=== PATIENT | female | born 1980 | race Caucasian/White ===

== ENCOUNTER 2017-08-15 21:37 | Emergency (ER) | payer SELFPAY ==
[~2017-08-15] VITALS: Ht 167.6 cm; Wt 87.3 kg
[~2017-08-15 21:37] MED LIST: NORE1TAB PO; TRI115O TD
[2017-08-15 21:38] VITALS: BP 157/96
[2017-08-16] MEDS ORDERED: METHOCARBAMOL 750 MG TABLET PO ONE (00:45)
[2017-08-16] MEDS ORDERED: ACETAMINOPHEN/CODEINE 300-30 MG TABLET PO ONE (00:45)
[2017-08-16] MEDS ORDERED: IBUPROFEN 600 MG TABLET PO ONE (00:45)
[2017-08-16] MEDS ORDERED: METHOCARBAMOL 500 MG TABLET PO ONE (01:00)
== END 2017-08-16 02:49 | disposition home or self-care (01) ==
LOC: EMS 21:38
DX: S29.012A Strain of muscle and tendon of back wall of thorax, initial encounter (principal); S16.1XXA Strain of muscle, fascia and tendon at neck level, initial encounter; V43.62XA Car passenger injured in collision with other type car in traffic accident, initial encounter; Y93.89 Activity, other specified; Y92.410 Unspecified street and highway as the place of occurrence of the external cause; Y99.8 Other external cause status
CPT/HCPCS: 72040; 72070; 72100; 99284

== ENCOUNTER 2019-12-21 16:33 | Emergency (ER) | payer OTHER ==
[~2019-12-21] VITALS: Ht 170.2 cm; Wt 72.7 kg
[2019-12-21 16:53] VITALS: BP 131/63
[2019-12-21] MEDS ORDERED: BACITRACIN 0.9 GM PACKET OINTMENT TP ONE (19:45)
[2019-12-21] MEDS ORDERED: IBUPROFEN 600 MG TABLET PO ONE (19:45)
[2019-12-21] MEDS ORDERED: PERTUSS(ACELL),DIPH,TET VAC/PF 0.5 ML VIAL IM ONE (19:45)
[2019-12-21] MEDS ORDERED: SODIUM CHLORIDE 0.9% 250 ML IRRIG SOLUTION BOTTLE IRRIG ONE (19:45)
== END 2019-12-21 20:31 | disposition home or self-care (01) ==
LOC: EMS 16:33
DX: S80.12XA Contusion of left lower leg, initial encounter (principal); W54.0XXA Bitten by dog, initial encounter; Y93.89 Activity, other specified; Y92.89 Other specified places as the place of occurrence of the external cause; Y99.8 Other external cause status
CPT/HCPCS: 90471; 90715

== ENCOUNTER 2024-09-19 22:03 | Emergency (ER) | payer OTHER ==
[~2024-09-19] VITALS: Ht 167.6 cm; Wt 75.0 kg
[2024-09-19 22:09] VITALS: TEMP 98.6
[2024-09-19 22:23] LABS: COVID AG,FIA SOURCE NASAL SWAB
[2024-09-19 22:47] LABS: INFLUENZA TYPE A NEGATIVE FOR TYPE A (NEGATIVE); INFLUENZA TYPE B NEGATIVE FOR TYPE B (NEGATIVE); SARS-COV2 (COVID) ANTIGEN,FIA Negative (Negative)
[2024-09-19 23:15] VITALS: BP 133/79; PULSE 84; RESP 18; O2SAT 100
[2024-09-19] MEDS: FLUTICASONE PROPIONATE 50 MCG/SPRAY 16 GM NASAL SPRAY NASAL ONE (23:45)
[2024-09-19] MEDS: PSEUDOEPHED/CETIRIZINE 120-5MG ER TABLET PO ONE (23:46)
== END 2024-09-20 00:05 | disposition home or self-care (01) ==
LOC: EMS 22:04
DX: J06.9 Acute upper respiratory infection, unspecified (principal); B97.89 Other viral agents as the cause of diseases classified elsewhere; R09.81 Nasal congestion; Z98.890 Other specified postprocedural states; Z20.822 Contact with and (suspected) exposure to COVID-19
CPT/HCPCS: 87804; 99283

== ENCOUNTER 2024-12-08 18:39 | Emergency (ER) | payer OTHER ==
[~2024-12-08] VITALS: Ht 167.6 cm; Wt 81.8 kg
[2024-12-08 18:53] VITALS: BP 112/57; PULSE 92; RESP 18; TEMP 97.5; O2SAT 99
[2024-12-08] MEDS: DESONIDE 0.05% 15 GM CREAM TP ONE (19:20)
== END 2024-12-08 20:14 | disposition still patient (30) ==
LOC: EMS 18:45
DX: R47.01 Aphasia (principal); Z76.0 Encounter for issue of repeat prescription; Z86.73 Personal history of transient ischemic attack (TIA), and cerebral infarction without residual deficits; Z98.890 Other specified postprocedural states
CPT/HCPCS: 99282; Z7502; Z7610